=== PATIENT | male | born 1990 | race Caucasian/White ===

== ENCOUNTER 2022-04-06 18:00 | Emergency (ER) | payer BC, SELFPAY ==
--- NOTE | ~2022-04-06 | XR_ITS ---
XR finger 2nd RT min 2V DATE: 04/06/2022 18:32 INDICATION: Smashed finger. Pain, laceration distally TECHNIQUE: 4 views COMPARISON: None FINDINGS: No fracture or dislocation, periosteal reaction or bone destruction, radiopaque soft tissue foreign body or subcutaneous emphysema is detected. IMPRESSION: Negative Reviewed, dictated and finalized at location A. T OF [employer] IMPRESSION: Negative
[2022-04-06 18:10] VITALS: BP 149/91; PULSE 83; RESP 16; TEMP 36.3; O2SAT 100
--- NOTE | 2022-04-06 18:28 | ED.UPPEXIN ---
HPI - Extremity Injury (Upper) General Chief Complaint: Extremity Injury, Upper Stated Complaint: Finger Injury Time Seen by Provider: 04/06/22 18:15 Source: patient and RN notes reviewed History of Present Illness HPI narrative: patient is a 31-year-old male who presents to urgent care with complaints of a laceration/ crush injury to the right index finger. Patient states it happened at approximately 10:00 a.m. this morning using a crowbar, lacerating on a piece of metal. Patient is not up-to-date on his tetanus. Patient states he has cleaned it and put a bandage over it. No other acute complaints. No acute distress noted. Patient aware of the plan of care. Some parts of this dictation were generated by voice recognition software and may contain typographical and/or grammatical inaccuracies. Related Data Allergies Allergy/AdvReac Type Severity Reaction Status Date / Time amoxicillin Allergy Swelling Verified 04/06/22 18:24 Review of Systems Review of Systems: CONSTITUTIONAL: Denies fever, chills, or sweats. EYES: Denies visual changes, redness, or discharge. ENT: Denies rhinorrhea, congestion, sore throat, or otalgia. CARDIOVASCULAR: Denies chest pain, palpitations, or edema. RESPIRATORY: Denies cough or dyspnea. GASTROINTESTINAL: Denies abdominal pain, nausea, vomiting, or diarrhea. GENITOURINARY: Denies dysuria or hematuria. SKIN: Reports a laceration to the right index finger MUSCULOSKELETAL: Denies back pain, joint pain, or myalgia. NEUROLOGIC: Denies headache, numbness, or weakness. All other systems reviewed are negative, except as documented in HPI. PMFSH Comments At the time of my signature, I reviewed and agree with the nursing past medical, surgical, social, and family history. There is no relevant family history pertinent to the patient complaint. Exam Narrative: GENERAL: This is a well-nourished, well-developed patient, in no apparent distress. HEAD: normocephalic, atraumatic. EYES: PERRL. Sclera clear/white. Vision is grossly intact. EARS: External ears normal NOSE: External nose normal with no obvious nasal discharge, nares without redness, no rhinorrhea. THROAT: Mucous membranes moist NECK: Neck supple SKIN: 1.5cm jagged superficial skin flap to the distal aspect of the right index finger near the cuticle/nail bed NEURO: awake, alert, and oriented to person, place and time. There were no obvious focal neurologic abnormalities. EXTREMITIES: Range of motion right upper extremity within normal limits with positive strong right radial pulse and capillary refill less than 2 seconds. Course Course Level of Care: Express Care Visit Vital Signs Vital signs: Vital Signs Temperature 97.4 F L 04/06/22 18:10 Pulse Rate 83 04/06/22 18:10 Respiratory Rate 16 04/06/22 18:10 Blood Pressure 149/91 H 04/06/22 18:10 Pulse Oximetry 100 04/06/22 18:10 Oxygen Delivery Room Air 04/06/22 18:10 Temperature 97.4 F L 04/06/22 18:10 Pulse Rate 83 04/06/22 18:10 Respiratory Rate 16 04/06/22 18:10 Blood Pressure 149/91 H 04/06/22 18:10 Pulse Oximetry 100 04/06/22 18:10 Oxygen Delivery Room Air 04/06/22 18:10 reviewed- Patient is informed that they may have pre-hypertension or hypertension based on a blood pressure reading in the department. I recommend the patient call the primary care provider listed on their discharge instructions or a physician of their choice this week to arrange follow-up for further evaluation of possible pre-hypertension or hypertension. MDM - Extremity Injury (Upper) MDM Narrative Medical decision making narrative: reviewed x-ray report with the patient. He is aware that x-ray is negative for fracture or deformity. no necessary need for closure. Appears that the wound is already closing on its own. Advised the patient to complete the oral antibiotic regimen for precautionary reasons. Be sure to eat and drink with the medication. Keep it clean wit
[2022-04-06] MEDS: TETANUS,DIPHTHERIA,AC PERTUSSIS ADULT (0.5 ML) BOOSTRIX IM (18:44)
== END 2022-04-06 19:05 | disposition home or self-care (01) ==
PROVIDERS: Emergency Provider Nurse Practitioner Family; PCP Emergency Medicine
DX: S61.210A Laceration without foreign body of right index finger without damage to nail, initial encounter (principal); X58.XXXA Exposure to other specified factors, initial encounter; Z23 Encounter for immunization
CPT/HCPCS: 29130; 73140; 90471; 90715; 99203; G0463